=== PATIENT | female | born 1985 | race Caucasian/White ===

== ENCOUNTER 2017-07-27 15:29 | Emergency (ER) | payer OTHER ==
[~2017-07-27] VITALS: Ht 172.7 cm; Wt 104.3 kg
[~2017-07-27 15:29] MED LIST: BACTRIM DS TAB1 EACH PO; CIPROFLOXACIN500 M1 PO; HYDROCODON-ACE1 EAC7 PO; KEFLEX500 MG PO; ZOFRAN4 MG PO
[2017-07-27] MEDS ORDERED: LISINOPRIL20 MG PO (15:40)
[2017-07-27] MEDS ORDERED: BUPROPION HCL100 MG PO (15:41)
[2017-07-27] MEDS ORDERED: VITAMIN B122500 MC1 PO (15:41)
[2017-07-27 16:29] LABS: ABSOLUTE BASOPHILS 0.1 thou/uL (0.0-0.2); ABSOLUTE EOSINOPHILS 0.3 thou/uL (0.0-0.7); ABSOLUTE LYMPHOCYTES 2.7 thou/uL (0.8-5.3); ABSOLUTE MONOCYTES 0.5 thou/uL (0.0-1.2); ABSOLUTE NEUTROPHILS 4.4 thou/uL (1.6-8.1); BASOPHILS 0.7 %; EOSINOPHILS 3.7 %; HEMATOCRIT 38.9 % (37.0-47.0); HEMOGLOBIN 13.2 gm/dL (12.0-15.0); LYMPHOCYTES 34.4 %; MCH 29.6 pg (26.0-34.0); MCHC 33.8 g/dL (28.0-37.0); MCV 87.6 fL (80.0-100.0); MONOCYTES 6.2 %; MPV 7.9 fl. (7.2-11.1); NUCLEATED RBCS 0 /100WBC; PLATELET COUNT* 287 thou/uL (150-400); RBC 4.44 mil/uL (4.20-5.00); WBC 7.9 thou/uL (4.0-11.0)
[2017-07-27 16:37] LABS: APTT 28.2 Seconds (25.0-31.3); CALCIUM 9.3 mg/dL (8.5-10.1); CREATININE 0.7 mg/dL (0.6-1.3); INR 1.1; POTASSIUM 3.6 mmol/L (3.5-5.1); PROTIME 10.3 Seconds (9.20-11.50)
[2017-07-27 16:41] LABS: ALBUMIN 3.8 g/dL (3.4-5.0); TOTAL BILIRUBIN 0.9 mg/dL (<0.1-1.0); TOTAL PROTEIN 7.6 g/dL (6.4-8.2)
[2017-07-27 17:20] LABS: URINE BILIRUBIN NEGATIVE (Negative); URINE BLOOD NEGATIVE (Negative); URINE CLARITY CLEAR; URINE COLOR YELLOW; URINE GLUCOSE-RANDOM NEGATIVE (Negative); URINE KETONES NEGATIVE (Negative); URINE LEUKOCYTES-REFLEX NEGATIVE (Negative); URINE NITRITE-REFLEX NEGATIVE (Negative); URINE PROTEIN NEGATIVE (Negative); URINE SPECIFIC GRAVITY 1.015 (1.005-1.030); URINE UROBILINOGEN 0.2 E.U./dl (0.2-1.0)
[2017-07-27] MEDS ORDERED: PHENERGAN 25 MG25 M1 PO (17:33)
[2017-07-27 17:45] VITALS: BP 120/79
== END 2017-07-27 17:46 | disposition home or self-care (01) ==
LOC: M.ERS 15:29
PROVIDERS: Nurse Practitioner Family
DX: G89.29 Other chronic pain (principal); R10.9 Unspecified abdominal pain; Z71.1 Person with feared health complaint in whom no diagnosis is made; I10 Essential (primary) hypertension; Z88.1 Allergy status to other antibiotic agents

== ENCOUNTER 2017-09-21 07:33 | Emergency (ER) | payer OTHER ==
[~2017-09-21] VITALS: Ht 172.7 cm; Wt 102.1 kg
[~2017-09-21 07:33] MED LIST changes: +BUPROPION HCL100 MG PO; +LISINOPRIL20 MG PO; +PHENERGAN 25 MG25 M1 PO; +VITAMIN B122500 MC1 PO
[2017-09-21] MEDS ORDERED: PREDNISONE 10 M10 MG PO (07:47)
[2017-09-21] MEDS ORDERED: OMEPRAZOLE40 MG PO (07:47)
[2017-09-21] MEDS ORDERED: DOXYCYCLINE 10100 MG PO (07:47)
[2017-09-21 08:01] LABS: ABSOLUTE LYMPHOCYTES 1.2 thou/uL (0.8-5.3); ABSOLUTE MONOCYTES 0.5 thou/uL (0.0-1.2); ABSOLUTE NEUTROPHILS 5.7 thou/uL (1.6-8.1); BASOPHILS 0.2 %; HEMATOCRIT 40.8 % (37.0-47.0); HEMOGLOBIN 13.4 gm/dL (12.0-15.0); LYMPHOCYTES 16.6 %; MCH 28.8 pg (26.0-34.0); MCHC 32.9 g/dL (28.0-37.0); MCV 87.5 fL (80.0-100.0); MONOCYTES 6.6 %; MPV 8.2 fl. (7.2-11.1); NUCLEATED RBCS 0 /100WBC; PLATELET COUNT* 300 thou/uL (150-400); POLYS 76.6 %; RBC 4.66 mil/uL (4.20-5.00); WBC 7.5 thou/uL (4.0-11.0)
[2017-09-21 08:11] LABS: CALCIUM 9.4 mg/dL (8.5-10.1); CREATININE 0.7 mg/dL (0.6-1.3); POTASSIUM 3.5 mmol/L (3.5-5.1)
[2017-09-21 08:22] LABS: ALBUMIN 3.4 g/dL (3.4-5.0); TOTAL BILIRUBIN 0.9 mg/dL (<0.1-1.0); TOTAL PROTEIN 8.3 g/dL (6.4-8.2)
[2017-09-21 08:44] VITALS: BP 148/96
== END 2017-09-21 08:45 | disposition home or self-care (01) ==
LOC: M.ERS 07:33
PROVIDERS: Family Medicine
DX: R53.1 Weakness (principal); I10 Essential (primary) hypertension; Z88.1 Allergy status to other antibiotic agents